=== PATIENT | female | born 1975 | race Caucasian/White ===

== ENCOUNTER 2018-04-20 13:31 | Observation (INO) | payer OTHER, SELFPAY ==
--- NOTE | 2018-04-20 14:26 | RAD ---
CHEST 2 VIEWS: Date: 04/20/18 HISTORY: Chest pain. FINDINGS: No comparison. Cardiac silhouette and pulmonary vasculature are unremarkable. Mediastinum is midline. No confluent a ir space consolidation, pneumothorax, or pleural fluid. IMPRESSION: No active cardiopulmonary abnormalities are demonstrated. POS: [facility]
[2018-04-20 14:34] LABS: #Eosinphils 0.3 thou/uL (0.0-0.7); #Lymphocytes 2.4 thou/uL (1.20-3.40); #Monocytes 0.5 thou/uL (0.11-0.59); %Basophils 0.8 % (0.0-1.0); %Eosinophils 5.1 % (0.0-10.0); %Lymphocytes 38.4 % (21.0-51.0); %Monocytes 7.7 % (0.0-10.0); %Neutrophils 48.2 % (42.0-75.0); Mean Corpuscular HGB CONC 33.6 g/dL (32.0-36.0); Mean Corpuscular Hemoglobin 31.2 pg (27.0-31.0); Mean Corpuscular Volume 92.8 fL (78.0-98.0); Platelet Count 315 thou/uL (130-400); RBC Distribution Width 12.1 % (11.5-14.5); Red Blood Cell (RBC) Count 4.81 mill/uL (4.20-5.40); White Blood Cell (WBC) Count 6.2 thou/uL (4.8-10.8)
[2018-04-20 14:57] LABS: ALT (SGPT) 11 U/L (8-55); AST (SGOT) 12 U/L (5-34); Albumin 4.3 g/dL (3.5-5.0); Alkaline Phosphatase 94 U/L (40-150); Anion Gap 14 mmol/L (10-20); BUN (Urea Nitrogen) 10 mg/dL (7.0-18.7); Bilirubin, Total 0.2 mg/dL (0.2-1.2); CK (CPK) 98 U/L (29-168); Calc. Creatinine Clearance 0 mL/min (70-130); Calcium 9.6 mg/dL (7.8-10.44); Carbon Dioxide 26 mmol/L (22-29); Chloride 105 mmol/L (98-107); Estimated GFR-MDRD 57; Globulin 2.9 g/dL (2.4-3.5); Glucose 90 mg/dL (70-105); Lipase 26 U/L (8-78); Potassium 3.7 mmol/L (3.5-5.1); Protein, Total 7.2 g/dL (6.0-8.3); Sodium 141 mmol/L (136-145)
[2018-04-20] MEDS ORDERED: Nitroglycerin 0.4 MG TAB 1 EACH ONE (15:42)
[2018-04-20] MEDS ORDERED: Aspirin Chewable 81 MG TAB ONE (15:42)
[2018-04-20] MEDS ORDERED: methylPREDNISolone Sod Succ/PF 125 MG/2 ML VIAL ONE (16:52)
[2018-04-20] MEDS ORDERED: Acetaminophen 325 MG TAB PO PRN (17:16)
[2018-04-20] MEDS ORDERED: Nitroglycerin 0.4 MG TAB (25 Tab Bottle) PO PRN (17:16)
[2018-04-20] MEDS ORDERED: Albuterol Sulfate 2.5 mg/3 ml Neb NEB PRN (17:16)
--- NOTE | 2018-04-20 17:24 | PDOC.FPRHP ---
- History of Present Illness Chief Complaint: chest pain and shortness of breath History of Present Illness: 42 yo f with suspected COPD and 30 pack year smoking hx presents with chest pain described as right sided with radiation to her shoulder, neck, and through to her back. It started this morning around 0700 while drinking coffee and sitting down. It lasted for a few minutes and went away on it's own. She then went to work, however the chest pain recurred, with the same presentation. After several episodes, she became worried and came to the ER. She endorses some associated shortness of breath, but states that the shortness of breath is more of a chronic thing for which she takes albuterol prn. She also endorses a chronic cough, but not really productive of sputum. She smokes a pack per day and has done this for 30 years. She denies associated n/v/diaphoresis with the chest pain, has never had a heart attack before and thinks her mom had some sort of heart hx but isn't sure what. Her mom she says from an aneurysm. - Allergies/Adverse Reactions Allergies Allergy/AdvReac Type Severity Reaction Status Date / Time No Known Allergies Allergy Verified 04/20/18 20:06 - Home Medications Medication Instructions Recorded Confirmed Type Albuterol Sulfate HFA (OR) 1 puff INH PRN PRN 04/20/18 04/20/18 History [Proventil Hfa (or)] - History PMHx:suspected copd, tobacco abuse PSHx: BTL FHx: mom-heart hx, aneurysm Social: smokes 1 ppd, 30 pack year hx; denies alcohol or drug use - Review of Systems General: denies: fever/chills, weight/appetite/sleep changes ENT: denies: nasal congestion, rhinorrhea Respiratory: reports: cough, shortness of breath. denies: congestion Cardiovascular: reports: chest pain. denies: palpitation, edema, paroxysmal nocturnal dyspnea, orthopnea Gastrointestinal: denies: nausea, vomiting, diarrhea Genitourinary: denies: incontinence, dysuria Skin: denies: rashes, lesions Musculoskeletal: denies: pain, tenderness Neurological: denies: numbness, syncope Psychological: denies: anxiety, depression - Vital signs BP: 113/86 HR: 90 RR: 17 Tmax: 98.5 Pox: 97% on RA Wt: 81kg - Physical Exam Constitutional: NAD, awake, alert and oriented HEENT: normocephalic and atraumatic, PERRLA, no scleral icterus, grossly normal vision, grossly normal hearing, normal nasal mucosa Neck: supple, no thyromegaly Heart: RRR, normal S1/S2, no murmurs/rubs/gallops, no edema Lungs: no respiratory distress, other (wheezing on the left side) Abdomen: soft, non-tender, bowel sounds present, no masses/distention Musculoskeletal: normal structure, normal tone Skin: no rash/lesions, good turgor, capillary refill <2 seconds Heme/Lymphatic: no unusual bruising or bleeding Psychiatric: normal mood and affect, good judgment and insight FMR H&P: Results - Labs Result Diagrams: 04/21/18 05:09 04/21/18 05:09 Lab results: WBC 6.2 thou/uL (4.8-10.8) 04/20/18 14:24 Hgb 15.0 g/dL (12.0-16.0) 04/20/18 14:24 Hct 44.6 % (36.0-47.0) 04/20/18 14:24 MCV 92.8 fL (78.0-98.0) 04/20/18 14:24 Plt Count 315 thou/uL (130-400) 04/20/18 14:24 Neutrophils % 48.2 % (42.0-75.0) 04/20/18 14:24 Sodium 141 mmol/L (136-145) 04/20/18 14:24 Potassium 3.7 mmol/L (3.5-5.1) 04/20/18 14:24 Chloride 105 mmol/L (98-107) 04/20/18 14:24 Carbon Dioxide 26 mmol/L (22-29) 04/20/18 14:24 BUN 10 mg/dL (7.0-18.7) 04/20/18 14:24 Creatinine 1.06 mg/dL (0.6-1.1) 04/20/18 14:24 Glucose 90 mg/dL (70-105) 04/20/18 14:24 Calcium 9.6 mg/dL (7.8-10.44) 04/20/18 14:24 Total Bilirubin 0.2 mg/dL (0.2-1.2) 04/20/18 14:24 AST 12 U/L (5-34) 04/20/18 14:24 ALT 11 U/L (8-55) 04/20/18 14:24 Alkaline Phosphatase 94 U/L (40-150) 04/20/18 14:24 Creatine Kinase 98 U/L (29-168) 04/20/18 14:24 B-Natriuretic Peptide Less than 10.0 pg/mL (0-100) 04/20/18 14:24 Serum Total Protein 7.2 g/dL (6.0-8.3) 04/20/18 14:24 Albumin 4.3 g/dL (3.5-5.0) 04/20/18 14:24 Lipase 26 U/L (8-78) 04/20/18 14:24 - EKG Interpretation EKG: NSR; inverted qrs on V2 - Radiology Interpretation Chest x-ray Status: image reviewed by me, report reviewed by me (no acute process) FMR H&P: A/P - Problem List (1) Chest pain, atypical Current Visit: Yes Status: Acute Code(s): R07.89 - OTHER CHEST PAIN (2) COPD (chronic obstructive pulmonary disease) Current Visit: Yes Status: Acute - Plan 42 yo f with suspected COPD presents with chest pain admitted for typical chest pain. #Typical Chest Pain- -trop negative, EKG showed NSR, no ischemic changes -Several risk factors, and moderately suspicious story, so will plan to stress in the am, will make NPO at midnight -ordered FLP for the am -prn nitro -aspiring given in the ER #COPD -chronic cough, worsening shortness of breath -no increased sputum production -will give albuterol neb and provide them prn for shortness of breath -not in exacerbation at this time #tobacco abuse- -counseled on cessation -nicotine patch ordered -30 pack year hx DVT prophylaxis: lovenox Code: FULL Diet: NPO at midnight dispo: pending stress results Robert Hong MD, PGY-2 FMR H&P: Upper Level - Plan Date/Time: 04/20/18 1724 I, [], have evaluated this patient and agree with findings/plan as outlined by business analyst intern resident. Pertinent changes/additions are listed here. Addendum - Attending - Attending Attestation Date/Time: 04/21/18 0755 I personally evaluated the patient and discussed the management with Dr. Hong on 04/20/18. I agree with and repeated the History, Examination, Assessment and Plan documented above with any addition or exceptions noted below.
[2018-04-20] MEDS ORDERED: Azithromycin 250 MG TAB PO SCH (17:30)
[2018-04-20] MEDS ORDERED: Albuterol Sulfate 2.5 mg/3 ml Neb EZPAP SCH (18:00)
[2018-04-20 18:11] LABS: Troponin I Less than 0.010 ng/mL (< 0.028)
[2018-04-20] MEDS ORDERED: Nicotine 21 MG PATCH TD SCH (21:00)
[2018-04-20] MEDS: Nitroglycerin 2% Ointment 1 INCH/1 GM Packet TOP SCH (21:38)
[2018-04-21 04:33] VITALS: TEMP 97.8
[2018-04-21 04:34] VITALS: BMI 34.6
--- NOTE | 2018-04-21 05:25 | PDOC.FM ---
- Subjective Subjective: Patient chest pain is resolved this morning. Patient reports history of GERD, states that she does not have it very often and it was different than this pain. Pain was not exacerbated by inspiration. - Objective Vital Signs & Weight: Vital Signs (12 hours) Temp Pulse Resp BP Pulse Ox 04/21/18 04:32 97.8 F 101 H 18 98/55 L 92 L 04/20/18 23:40 107 H 18 129/71 96 04/20/18 23:20 110 H 16 96 04/20/18 19:15 84 16 96 04/20/18 19:12 98.1 F 85 18 125/82 96 Weight Weight 85.82 kg Result Diagrams: 04/21/18 05:09 04/21/18 05:09 Phys Exam - Physical Examination Constitutional: NAD HEENT: moist MMs, sclera anicteric Neck: no nodes, supple Respiratory: no wheezing, clear to auscultation bilateral Cardiovascular: RRR, no significant murmur chest not tender to palpation, no reproducible chest pain Gastrointestinal: soft, non-tender, no distention, positive bowel sounds Musculoskeletal: no edema, pulses present Neurological: non-focal, moves all 4 limbs Psychiatric: normal affect, A&O x 3 Skin: no rash, normal turgor, cap refill <2 seconds Dx/Plan (1) COPD (chronic obstructive pulmonary disease) Status: Acute (2) Chest pain, atypical Code(s): R07.89 - OTHER CHEST PAIN Status: Acute (3) Tobacco abuse Code(s): Z72.0 - TOBACCO USE Status: Acute - Plan Plan: 42 yo f with suspected COPD presents with chest pain admitted for typical chest pain. #Typical Chest Pain -trop negative, EKG showed NSR, no ischemic changes -Several risk factors, HEART score 4, and moderately suspicious story, will stress this am - NPO at midnight -FLP shows elevated -prn nitro -aspirin given in the ER -TSH pending -lipase negative #COPD -chronic cough, worsening shortness of breath -no increased sputum production -will give albuterol neb and provide them prn for shortness of breath -not in exacerbation at this time #tobacco abuse -counseled on cessation -nicotine patch ordered -30 pack year hx DVT prophylaxis: lovenox Code: FULL Diet: NPO at midnight dispo: pending stress results Addendum - Attending - Attending Attestation Date/Time: 04/21/18 1226 I personally evaluated the patient and discussed the management with Dr. Elias. I agree with the History, Examination, Assessment and Plan documented above with any addition or exceptions noted below. Patient doing well with no recurrent chest pain. No ACS. Awaiting stress testing results and likely discharge afterwards if normal result.
[2018-04-21] MEDS: Nitroglycerin 2% Ointment 1 INCH/1 GM Packet TOP SCH (05:47)
[2018-04-21 05:54] LABS: Anion Gap 14 mmol/L (10-20); BUN (Urea Nitrogen) 14 mg/dL (7.0-18.7); Calc. Creatinine Clearance 88 mL/min (70-130); Calcium 9.9 mg/dL (7.8-10.44); Carbon Dioxide 21 mmol/L (22-29); Cardiac Risk 4.8 (Less than 4.5); Chloride 108 mmol/L (98-107); Cholesterol 215 mg/dl (< 200 Desired); Estimated GFR-MDRD 53; Glucose 192 mg/dL (70-105); HDL Cholesterol 45 mg/dL (>60 Neg Risk); LDL Cholesterol, Calculated 147 mg/dL; Potassium 3.9 mmol/L (3.5-5.1); Sodium 139 mmol/L (136-145); Triglycerides 116 mg/dL (Less than 150)
[2018-04-21 06:25] LABS: Band 6 % (5-11); Hemoglobin 14.3 g/dL (12.0-16.0); Lymphocytes 11 % (21-51); MDiff Complete? YES; Mean Corpuscular HGB CONC 33.4 g/dL (32.0-36.0); Mean Corpuscular Hemoglobin 31.3 pg (27.0-31.0); Mean Corpuscular Volume 93.7 fL (78.0-98.0); Mean Platelet Volume 7.3 fL (7.4-10.4); Monocytes 1 % (0-10); Myelocyte 1 % (0-0); Neutrophil 81 % (42-75); Platelet Count 302 thou/uL (130-400); RBC Distribution Width 12.2 % (11.5-14.5); Red Blood Cell (RBC) Count 4.55 mill/uL (4.20-5.40); White Blood Cell (WBC) Count 12.2 thou/uL (4.8-10.8)
[2018-04-21 08:48] VITALS: BP 121/69
[2018-04-21] MEDS ORDERED: predniSONE 20 MG TAB PO SCH (09:00)
[2018-04-21] MEDS ORDERED: Enoxaparin Sodium 40 MG/0.4 ML SYRINGE SC SCH (09:00)
[2018-04-21] MEDS ORDERED: Azithromycin 250 MG TAB PO SCH (09:00)
[2018-04-21 09:34] LABS: Hemoglobin A1c 5.6 % (4.0-6.0)
--- NOTE | 2018-04-21 11:16 | NM ---
NUCLEAR MEDICINE CARDIAC STRESS: HISTORY: Chest pain. COMPARISON: None. TECHNIQUE: The patient is administered 33 mCi of Technetium 99m sestamibi for rest imaging. FINDINGS: Homogeneous distribution of the radiotracer in the left ventricle. No evidence of a defect. End-diastolic volume is 73 mL. End-systolic volume is 24 mL. CARDIAC GATING: Normal motion and thickening. 67% ejection fraction. IMPRESSION: 1. 67% ejection fraction. 2. Homogeneous distribution of the radiotracer in the left ventricle. POS: [facility]
--- NOTE | 2018-04-22 14:58 | DIS ---
DATE OF ADMISSION: 04/20/2018 DATE OF DISCHARGE: 04/21/2018 ADMITTING ATTENDING: Yoseph Lee MD. RESIDENT: Kenia Elias MD. CONSULTS: None. PROCEDURES: 1. Chest x-ray on 04/20/2018, no active cardiopulmonary abnormality demonstrated. 2. Nuclear medicine cardiac stress test on 04/21/2018, impression, 67% ejection fraction. Homogeneous distribution of radiotracer in the left ventricle. PRIMARY DIAGNOSIS: Costochondritis. SECONDARY DIAGNOSES: 1. Chronic obstructive pulmonary disease. 2. Tobacco abuse. DISCHARGE MEDICATIONS: Albuterol 1 puff inhalation p.r.n. for shortness of breath or wheezing. DISCONTINUED MEDICATIONS: None. HISTORY OF PRESENT ILLNESS/HOSPITAL COURSE: A 42-year-old female with suspected COPD and a 30 pack-year smoking history, presented with chest pain described as right-sided, radiating to her shoulder, neck and to her back. This started this morning around 7 when drinking coffee and sitting down. It lasted for several minutes and went away on its own. She then went to work, however, the chest pain recurred with the same presentation. After several episodes, she became worried and came to the ER. She endorses some associated shortness of breath, states the shortness of breath is more of a chronic thing, for which she takes albuterol p.r.n. She also endorses chronic cough that is not productive of sputum. She smokes a pack per day and has done this for 30 years. She denies associated nausea, vomiting, or diaphoresis with the chest pain. She has never had a heart attack before and thinks her mom had some sort of heart history, but is unsure of the exact diagnosis. She believes that her mom possibly from an aortic aneurysm. The patient was admitted for typical chest pain. Her trop was negative. EKG showed normal sinus rhythm with no ischemic changes. She had several risk factors with the heart score of 4 and a moderately suspicious story, so a stress test was performed which was negative. We ordered a fasting lipid panel and aspirin was given in the ED. Everything came back normal, so the patient was discharged in stable condition. For possible COPD, the patient had a chronic cough and worsening shortness of breath. She was given albuterol nebs p.r.n. She is not thought to be in exacerbation at this time. The patient will likely benefit from outpatient spirometry testing. The patient is a current smoker. She was counseled on cessation. She has greater than 30 pack-year history. DISPOSITION: Stable. DISCHARGE INSTRUCTIONS: 1. Location: Home. 2. Diet: Regular. 3. Activity: As tolerated. 4. Follow up with Rosibel Varghese within one week. Patient would likely benefit from outpatient spirometry testing for diagnosis of COPD. Job ID: [id number] MTDD
--- NOTE | 2018-04-23 20:32 | EKG ---
Test Reason : Blood Pressure : / mmHG Vent. Rate : 093 BPM Atrial Rate : 093 BPM P-R Int : 126 ms QRS Dur : 082 ms QT Int : 348 ms P-R-T Axes : 026 065 053 degrees QTc Int : 432 ms Normal sinus rhythm Septal infarct , age undetermined Abnormal ECG Confirmed by KARAN GUNN ([id number]), communications editor SONIA SILVA ([id number]) on 04/23/2018 8:31:28 PM Referred By: Confirmed By:KARAN GUNN
== END 2018-04-21 12:12 | disposition home or self-care (01) ==
LOC: ERS 13:31 → 2SW 16:43
PROVIDERS: ADMIT Family Medicine; ATTEND Family Medicine
DX: M94.0 Chondrocostal junction syndrome [Tietze] (principal); J44.9 Chronic obstructive pulmonary disease, unspecified; F17.210 Nicotine dependence, cigarettes, uncomplicated; K21.9 Gastro-esophageal reflux disease without esophagitis; Z98.51 Tubal ligation status
CPT/HCPCS: 36415; 71046; 78452; 80048; 80053; 80061; 82550; 83036; 83690; 83880; 84443; 84484; 85007; 85025; 85027; 85379; 93005; 93017; 94640; 94760; 96372; 96374; 99406; A9500; G0378; J1650; J2930; J7620